=== PATIENT | male | born 1990 | race Caucasian/White ===

== ENCOUNTER 2022-08-26 06:11 | Day surgery (SDC) | payer OTHER ==
[2022-08-24 15:42] VITALS: BMI 31.1
[2022-08-26] MEDS ORDERED: PROPOFOL 40 ML ONE ×2 (08:11→08:18)
[2022-08-26] MEDS ORDERED: PROPOFOL 20 ML ONE (08:30)
== END 2022-08-26 09:06 | disposition home or self-care (01) ==
LOC: CSHSDC 06:11
PROVIDERS: ATTEND Internal Medicine Gastroenterology
PROC: 0DJD8ZZ Inspection of Lower Intestinal Tract, Via Natural or Artificial Opening Endoscopic (ICD-10-PCS; principal; 2022-08-26)
DX: K52.9 Noninfective gastroenteritis and colitis, unspecified (principal); Z90.49 Acquired absence of other specified parts of digestive tract
CPT/HCPCS: J2704